=== PATIENT | female | born 2000 | race Caucasian/White ===

== ENCOUNTER → 2021-11-19 | Outpatient (CLI) | payer BC, SELFPAY ==
--- NOTE | 2021-11-19 12:22 | EKG12_ITS ---
Test Reason : MEDICATION Blood Pressure : / mmHG Vent. Rate : 072 BPM Atrial Rate : 072 BPM P-R Int : 112 ms QRS Dur : 076 ms QT Int : 400 ms P-R-T Axes : 016 073 003 degrees QTc Int : 438 ms Normal sinus rhythm Normal ECG Confirmed by WERO SANTOS, ALFREDO ([id number]), slot editor FEI ROBLES ([id number]) on 11/20/2021 8:30:47 AM Referred By: Tana Oliver Confirmed By:ALFREDO CONTEH MD
== END | disposition home or self-care (01) ==
LOC: PSN 12:20
PROVIDERS: Referring Provider Physician Assistant; Visit Provider Physician Assistant
DX: Z79.899 Other long term (current) drug therapy (principal)
CPT/HCPCS: 93005

== ENCOUNTER 2022-03-31 16:43 | Emergency (ER) | payer BC, SELFPAY ==
[2022-03-31 16:44] VITALS: BP 124/76; PULSE 105; RESP 16; TEMP 36.4; O2SAT 98; BMI 31.6
[2022-03-31 17:15] LABS: Absolute Lymphocyte Count 2.57 X10^3/uL (0.83-4.51); Absolute Neutrophil Count 7.7 X10^3/uL (2.0-7.7); Basophil# 0.04 X10^3/uL; Basophil% 0.4 % (0-1); Eosinophil# 0.11 X10^3/uL; Hematocrit 41.6 % (37-47); Hemoglobin 13.9 g/dL (12.0-15.0); Lymphocyte # 2.57 X10^3/ul (0.83-4.51); Lymphocyte % 23.3 % (19-41); Mean Corp Hgb Conc 33.4 g/dL (32-36); Mean Corpuscular Hgb 27.8 pg (27.0-32.0); Mean Corpuscular Volume 83.2 fL (81-99); Mean Platelet Vol. 10.4 fl (6.2-12.0); Monocyte# 0.59 X10^3/uL; Monocyte% 5.3 % (0-10); NRBC Flagged by Analyzer 0 % (0-5); Neutrophil # 7.69 X10^3/uL (2.7-7.7); Neutrophil % 69.6 % (47-70); Platelet Count 322 K/mm3 (150-450); RBC Distribution Width CV 12.7 % (11.6-14.6); RBC Distribution Width SD 38.3 fl (35.1-43.9)
[2022-03-31 17:31] LABS: Anion Gap 8 (5-15); BUN 11 mg/dL (7-18); BUN/Creat Ratio 12.9 RATIO (10-20); Calcium,Total 10.1 mg/dL (8.5-10.1); Chloride 107 mmol/L (98-107); Creatinine, Serum 0.85 mg/dL (0.55-1.02); EST Glomerular Filtration Rate 88 mL/min (>60); Est Glom Filt Rate - Afr Amer 106 mL/min (>60); Estimated Creatinine Clearance 93.42 ml/min; Glucose 85 mg/dL (74-106); Potassium 3.6 mmol/L (3.5-5.1); Sodium Level 138 mmol/L (136-145)
[2022-03-31 17:34] LABS: Internal QC Validated? YES +Cl - CLEAR BKGD; Pregnancy, Serum, hCG Quali. NEGATIVE Negative
[2022-03-31 18:08] LABS: Bacteria 0 SEEN /hpf (None Seen); Mucous, Urine 0 SEEN /hpf (<or=2+); Red Blood Cells-Urine 0 SEEN /hpf (0-5); Squamous Epithelial Cells - UA 0 SEEN /hpf (5-10); White Blood Cells 0 SEEN /hpf (0-5)
--- NOTE | 2022-03-31 18:22 | US_ITS ---
INDICATION: pelvic pain EXAMINATION: Ultrasound US Transvaginal Non-OB TECHNIQUE: Transvaginal (for optimal evaluation of the adnexa) pelvic ultrasound was performed. Grayscale, spectral waveform, and color flow Doppler evaluation of the adnexa. COMPARISON: None. FINDINGS: UTERUS: Anteverted. The uterus measures 6.2 x 3.4 x 2.8 cm. There is no uterine mass. The endometrial stripe measures 6 mm in AP diameter which is within normal limits. RIGHT OVARY: 6.2 x 3.4 x 2.8 cm. Anechoic cyst measures 3.9 x 2.4 x 2.1 cm. There is normal arterial inflow and venous outflow present in the right ovary. LEFT OVARY: 2.7 x 2.3 x 1.5 cm. Non-enlarged, normal echogenicity. There is normal arterial inflow and venous outflow present in the left ovary. FREE FLUID: Moderate in the cul-de-sac. US/Transvaginal Non- IMPRESSION: 3.9 cm right ovarian cyst. Moderate free fluid in the cul-de-sac may reflect a rupturing cyst but is otherwise nonspecific. Electronically Signed: Steve Rutherford MD at 19:32 EST ,
--- NOTE | 2022-03-31 18:28 | EX.ED.DYSGE1 ---
HPI History of Present Illness Chief Complaint: Abd Pain Informant: patient Narrative Narrative: Patient is a 21-year-old female with history of ADD and anxiety and currently being evaluated for endometriosis. She is presenting with pelvic abdominal pain. Patient states she got home from taking her finals today. She went to lay down and had sudden severe pain in her lower abdomen. She describes as a pressure and a stretching sensation. The right side is worse than the left. The pain was severe she had nausea but no vomiting. The nausea is currently improved. States the pain is worse if she touches the area or takes a deep breath. She has had a lot of stress in her life as her father is currently in hospice due to a brain tumor. Her last menstrual period was 03/12. She follows with Dr. Arizmendi at [facility] and is getting evaluated for potential laparoscopic exploratory surgery for the endometriosis. She does have a history of ovarian cyst with rupture back in 2018 but she states this feels different. Patient is currently on oral contraceptives. No other complaints at this time. Did not take anything for pain prior to arrival. PFSH PFSH Home Medications lisdexamfetamine 40 mg capsule (Vyvanse) 40 mg PO DAILY 03/31/22 [History Last Taken Unknown] Allergy/AdvReac Type Severity Reaction Status Date / Time No Known Allergies Allergy Verified 03/31/22 16:46 Social History Smoking Status: Never smoker ROS ROS ED Constitutional Constitutional ED: Denies chills or fever(s) Eyes Eyes: Denies change in vision ENT ENT ED: Denies sore throat Cardiovascular Cardiovascular: Denies chest pain Respiratory/Chest Respiratory/Chest: Denies cough Gastrointestinal Gastrointestinal: Reports abdominal pain and nausea; Denies constipation, diarrhea or vomiting Genitourinary Genitourinary ED: Reports LMP (females 10-50) Details: Comment: (03/12); Denies dysuria, hematuria or urinary frequency Musculoskeletal Musculoskeletal: Denies arthralgias or back pain Integumentary Denies rash Neurologic Neurologic: Denies headache(s) or weakness Psychiatric Psychiatric: Denies anxiety EXAM Physical Exam Const Vital Signs: 03/31/22 16:44 03/31/22 20:49 Temperature 97.6 F L Temperature Source Temporal Pulse Rate 105 H 79 Respiratory Rate 16 14 Blood Pressure 124/76 H Blood Pressure Mean 92 Pulse Ox 98 97 Oxygen Delivery Method Room Air Positive well nourished and well developed General Appearance ED: well developed and NAD HEENT Reports moist mucous membranes Eyes PERRL and EOMs intact bilaterally Neck supple Chest Wall inspection of chest normal and palpation of chest normal Resp normal respiratory effort and clear to auscultation bilaterally Cardio regular rate, regular rhythm and no murmurs GI normal to inspection, nondistended, normoactive bowel sounds GI Narrative: Negative heel strike, no rebound tenderness. negative psoas sign and Rovsing sign. No pain at McBurney's point. Palpation: soft and tender RLQ (More in the pelvic region); Negative for guarding Back/Spine no CVA tenderness Extremity normal to inspection Neuro oriented x3 Sensorium / Orientation: alert Motor Exam: Negative for general weakness Psych mental status grossly normal Skin no rashes or lesions noted MDM MDM MDM Narrative Medical decision making narrative: Patient is evaluated for lower abdominal pain. Has a history of ovarian cysts and is getting evaluated for endometriosis. Patient has some mild suprapubic/pelvic tenderness on abdominal exam. Overall she is well-appearing. Upon arrival patient's blood pressure is normal however she is mildly tachycardic with a pulse of 105. CBC and BMP normal. Serum is negative. Urinalysis shows a mild dehydration with ketones of 15 but otherwise normal. Patient is given dose of IV Toradol as well as a liter of IV fluid. Her pain is lower than I would expect for appendicitis and I suspect a gynecologic cause of her pain. Differential does include ovarian torsion and pelvic ultrasound was obtained. Patient does have some free fluid which is nonspecific on the pelvic exam. There is a large ovarian cyst but no signs of torsion. Is possible that patient has a cyst that is rupturing and this is causing her ultrasound findings. Her pain is improved on physical exam. She is now just sore. Lower suspicion for intermittent torsion as she only had 1 episode of severe pain. Patient is encouraged to follow-up with her primary care doctor. She is counseled on the signs and symptoms of ovarian torsion/intermittent torsion and given return precautions to the ER. She verbalizes good understanding of this plan. Instructed to alternate 600 mg ibuprofen every 6 hours as needed for pain. Lab Data Attestation: I reviewed the patient's lab results. Labs: Laboratory Results - last 24 hr 03/31/22 03/31/2203/31/22 17:05 17:05 17:05 WBC 11.0 RBC 5.00 Hgb 13.9 Hct 41.6 MCV 83.2 MCH 27.8 MCHC 33.4 RDW Std Deviation 38.3 RDW Coeff of Dayna 12.7 Plt Count 322 MPV 10.4 Immature Gran % (Auto) 0.400 Neut % (Auto) 69.6 Lymph % (Auto) 23.3 [place] % (Auto) 5.3 Eos % (Auto) 1.0 Baso % (Auto) 0.4 Absolute Neuts (auto) 7.7 Absolute Lymphs (auto) 2.57 Nucleated RBC % 0 Sodium 138 Potassium 3.6 Chloride 107 Carbon Dioxide 23.0 Anion Gap 8 BUN 11 Creatinine 0.85 Estim Creat Clear Calc 93.42 Est GFR (MDRD) Af Amer 106 Est GFR (MDRD) Non-Af 88 BUN/Creatinine Ratio 12.9 Glucose 85 Calcium 10.1 Serum , Qual NEGATIVE Urine Color Urine Clarity Urine pH Ur Specific [place] Urine Protein Urine Glucose (UA) Urine Ketones Urine Occult Blood Urine Nitrite Urine Bilirubin Urine Urobilinogen Ur Leukocyte Esterase Urine RBC Urine WBC Ur Squamous Epith Cells Urine Bacteria Urine Mucus 03/31/22 18:01 WBC RBC Hgb Hct MCV MCH MCHC RDW Std Deviation RDW Coeff of Dayna Plt Count MPV Immature Gran % (Auto) Neut % (Auto) Lymph % (Auto) [place] % (Auto) Eos % (Auto) Baso % (Auto) Absolute Neuts (auto) Absolute Lymphs (auto) Nucleated RBC % Sodium Potassium Chloride Carbon Dioxide Anion Gap BUN Creatinine Estim Creat Clear Calc Est GFR (MDRD) Af Amer Est GFR (MDRD) Non-Af BUN/Creatinine Ratio Glucose Calcium Serum , Qual Urine Color Yellow Urine Clarity Clear Urine pH 8.0 Ur Specific [place] 1.010 Urine Protein Negative Urine Glucose (UA) Normal Urine Ketones 15 H Urine Occult Blood Negative Urine Nitrite Negative Urine Bilirubin Negative Urine Urobilinogen Normal Ur Leukocyte Esterase Negative Urine RBC 0 SEEN Urine WBC 0 SEEN Ur Squamous Epith Cells 0 SEEN Urine Bacteria 0 SEEN Urine Mucus 0 SEEN Radiography Diagnostic Testing: Clinical Impression(s) from Imaging Studies Transvaginal US 03/31/22 18:22 IMPRESSION: 3.9 cm right ovarian cyst. Moderate free fluid in the cul-de-sac may reflect a rupturing cyst but is otherwise nonspecific. Electronically Signed: Steve Rutherford MD at 19:32 EST Reading Location ID and State: [facility] / [place] Tel , Service support , Discharge Plan Triage Chief Complaint: Abd Pain ED Provider: Desiree Shah Dx/Rx/DC Orders Clinical Impression: Pelvic pain, Rupture of cyst of right ovary Instructions: ED Ovarian Cyst Prescriptions: No Action Vyvanse 40 mg capsule 40 mg PO DAILY Label Comments: TAKE 1 CAPSULE BY MOUTH EVERY DAY IN THE MORNING Primary Care Provider: Phyllis Pichardo Referrals: Phyllis Pichardo [Primary Care Provider] - Activity Restrictions/Additional Instructions: Follow-up with your PHARMACY PICKING TECHNICIAN. Call them tomorrow. Let them know that you had an ultrasound which showed a ovarian cyst on the right side as well as free fluid. We suspect it was a ruptured cyst but recommend close outpatient follow-up. If your pain returns/becomes more severe please return to the emergency room presents possibly to be having intermittent ovarian torsion. Take [id number]-[id number] ibuprofen (600 mg every 6 hours as needed for pain) Disposition Disposition: Home, Self Care
[2022-03-31 18:33] LABS: Color, Urine Yellow (Yellow); Glucose, Dipstick Normal (Normal); Ketone-Dipstick 15 mg/dl (Negative); Leukocyte Esterase-Dipstick Negative /ul (Negative); Nitrite-Dipstick Negative (Negative); Occult Blood-Urine Negative /ul (Negative); Protein-Dipstick Negative (Negative); Urine Bilirubin Dipstick Negative (Negative); Urine Clarity Clear (Clear); Urine Urobilinogen Normal (Normal)
[2022-03-31] MEDS: Ketorolac 15 MG/ML Vial IV (18:33)
[2022-03-31 20:49] VITALS: PULSE 79; RESP 14; O2SAT 97
== END 2022-03-31 20:49 | disposition home or self-care (01) ==
PROVIDERS: Emergency Provider Emergency Medicine; PCP Family Medicine; Visit Provider Emergency Medicine
DX: R10.2 Pelvic and perineal pain (principal); N83.201 Unspecified ovarian cyst, right side; F41.9 Anxiety disorder, unspecified; Z79.899 Other long term (current) drug therapy
CPT/HCPCS: 76830; 80048; 81001; 84703; 85025; 93976; 96374; 99283; J7030; A4216

== ENCOUNTER → 2022-06-20 | Outpatient (CLI) | payer BC, SELFPAY ==
[2022-06-20 13:13] LABS: Erythrocyte Sedimentation Rate 11 mm/hr (0-30)
[2022-06-20 13:16] LABS: Absolute Lymphocyte Count 2.67 X10^3/uL (0.83-4.51); Absolute Neutrophil Count 4.5 X10^3/uL (2.0-7.7); Basophil# 0.04 X10^3/uL; Basophil% 0.5 % (0-1); Eosinophil# 0.14 X10^3/uL; Eosinophils% 1.8 % (0-5); Lymphocyte # 2.67 X10^3/ul (0.83-4.51); Lymphocyte % 34.1 % (19-41); Mean Corp Hgb Conc 33.3 g/dL (32-36); Mean Corpuscular Hgb 27.6 pg (27.0-32.0); Mean Corpuscular Volume 82.7 fL (81-99); Mean Platelet Vol. 10.8 fl (6.2-12.0); Monocyte# 0.47 X10^3/uL; NRBC Flagged by Analyzer 0 % (0-5); Neutrophil % 57.3 % (47-70); Platelet Count 345 K/mm3 (150-450); RBC Distribution Width CV 11.9 % (11.6-14.6); RBC Distribution Width SD 35.8 fl (35.1-43.9); Red Blood Count 5.08 M/mm3 (4.2-5.4); White Blood Count 7.8 K/mm3 (4.4-11.0)
[2022-06-20 13:50] LABS: ALB/GLOB Ratio 1.2 RATIO (0.9-2.4); AST(SGOT) 13 U/L (15-37); Alanine Aminotransfer ALT/SGPT 21 U/L (13-56); Albumin, Serum 4.2 g/dL (3.2-5.0); Alkaline Phosphatase 71 U/L (45-117); Anion Gap 9 (5-15); BUN 10 mg/dL (7-18); CRP < 2.90 mg/L (0.0-3.0); Calcium,Total 9.7 mg/dL (8.5-10.1); Chloride 106 mmol/L (98-107); Creatinine, Serum 0.77 mg/dL (0.55-1.02); EST Glomerular Filtration Rate 99 mL/min (>60); Est Glom Filt Rate - Afr Amer 120 mL/min (>60); Globulin 3.6 g/dL (2.2-4.2); Glucose 91 mg/dL (74-106); LDH 158 U/L (84-246); Potassium 3.6 mmol/L (3.5-5.1); Protein, Total 7.8 g/dL (6.4-8.2); Sodium Level 136 mmol/L (136-145)
[2022-06-22 16:09] LABS: Anti-Centromere B Ab <0.2 AI (0.0-0.9); Anti-Chromatin <0.2 AI (0.0-0.9); Anti-Jo <0.2 AI (0.0-0.9); Anti-Scleroderma-70 AB 4.9 AI (0.0-0.9); RNP Ab 0.3 AI (0.0-0.9); SJOGREN'S Anti-SS-A test < 0.2 AI (0.0-0.9); SJOGREN'S Anti-SS-B test 4.4 AI (0.0-0.9); Smith Ab <0.2 AI (0.0-0.9)
[2022-06-22 20:34] LABS: Anti-dsDNA Ab 1 IU/mL (0-9)
[2022-06-23 08:10] LABS: Endomysial Antibody IgA Negative (Negative); Immunoglobulin A 66 mg/dL (87-352)
[2022-06-23 17:21] LABS: t-Transglutaminase IgA <2 U/mL (0-3)
[2022-06-25 12:09] LABS: Albumin 4.2 g/dL (2.9-4.4); Alpha-1-Globulins 0.2 g/dL (0.0-0.4); Alpha-2-Globulins 0.8 g/dL (0.4-1.0); Cytoplasmic Ab (C-ANCA) <1:20 titer (Neg:<1:20); Gamma Globulin 0.9 g/dL (0.4-1.8); Immunoglobulin A 73 mg/dL (87-352); Immunoglobulin E 16 IU/mL (6-495); Immunoglobulin G 977 mg/dL (586-1602); Immunoglobulin M 132 mg/dL (26-217); PROEL- TOTAL PROTEIN 7.1 g/dL (6.0-8.5)
[2022-06-25 12:34] LABS: Perinuclear Ab (P-ANCA) <1:20 titer (Neg:<1:20)
== END | disposition home or self-care (01) ==
LOC: LAB 12:19
PROVIDERS: PCP Family Medicine; Referring Provider Nurse Practitioner Adult Health; Visit Provider Nurse Practitioner Adult Health
DX: R10.9 Unspecified abdominal pain (principal); R19.8 Other specified symptoms and signs involving the digestive system and abdomen
CPT/HCPCS: 36415; 80053; 82784; 82785; 83516; 83615; 84165; 85025; 85652; 86140; 86225; 86235; 86255; 86256; 86334

== ENCOUNTER → 2022-06-21 | Outpatient (CLI) | payer BC, SELFPAY ==
[2022-06-25 12:32] LABS: Calprotectin, Stool <16 ug/g (0-120)
== END | disposition home or self-care (01) ==
LOC: LAB 12:31 → LABSPEC 12:33
PROVIDERS: PCP Family Medicine; Visit Provider Nurse Practitioner Adult Health
DX: R10.9 Unspecified abdominal pain (principal); R19.8 Other specified symptoms and signs involving the digestive system and abdomen
CPT/HCPCS: 83630; 83993

== ENCOUNTER 2022-08-23 12:53 | Day surgery (SDC) | payer BC, SELFPAY ==
[2022-08-23 13:35] VITALS: BP 126/63; PULSE 92; RESP 16; TEMP 36.6; O2SAT 96; BMI 30.6
[2022-08-23] MEDS: Lactated Ringers 1,000 ML 15 ML IV (13:45)
[2022-08-23 13:54] LABS: Internal QC Validated? YES +Cl - CLEAR BKGD; Pregnancy, Urine Negative Negative
--- NOTE | 2022-08-23 14:15 | IMM_PTH ---
PATIENT: RANDELL ALSTON LOC: EN U#:[id number] AGE/SX: 22/ ROOM: RE08/23/[address]: Dr. Attila Bates DO : 2000 BED: DIS: 08/23/2022 SPEC #: [id number] RECD: 08/24/22 13:09 STATUS: MEGAN REQ #: [id number] ELISABETH: 08/23/22 14:[address]: Attila Bates DEPT: IMMUNOHISTOCHEMISTRY RECD BY: Roberta Lazar ENTERED: 08/24/22 13:10 SP TYPE: IMMUNO OTHR DR: CORDELIA PACHECO DO Tissues: B - Stomach, NOS Procedures: H Pylori (initial) PHYSICIAN & INSTITUTION [place] [id number] SPECIMEN INFORMATION: Tissue Source: B ? Gastric body Clinical Info: Constipation/diarrhea, abdominal pain Specimen Number: [id number] CPT code: 08212 METHODOLOGY: Deparaffinized sections of prefer/formalin-fixed tissue or PAP/DQ stained slides are incubated with monoclonal/polyclonal antibodies/oligonucleotide probes. Localization is made via biotin free immunoperoxidase method. Appropriate controls are performed and reacted as expected. Results on target cell population are indicated in the following table: RESULTS: ANTIBODY / CLONE RESULT Block B H Pylori (polyclonal) negative These tests were developed and their performance characteristics determined by [facility]. They may not have been cleared or approved by the U.S. Food and Drug Administration. The FDA has determined that such clearance or approval is not necessary. The above immunohistochemical/dualISH markers are ordered and reviewed by the Pathologist. INTERPRETATION: B. Gastric body, biopsy: Negative for Helicobacter pylori organisms. SJ:joce 08/25/2022
--- NOTE | 2022-08-23 14:15 | COLBX_PTH ---
PATIENT: RANDELL ALSTON LOC: EN U#:[id number] AGE/SX: 22/ ROOM: RE08/23/[address]: Dr. Attila Bates DO : 2000 BED: DIS: 08/23/2022 SPEC #: [id number] RECD: 08/23/22 16:09 STATUS: MEGAN ESVIN #: [id number] ELISABETH: 08/23/22 14:[address]: Attila Bates DEPT: SURGICAL PATHOLOGY RECD BY: Maddy Haas ENTERED: 08/24/22 10:14 SP TYPE: COLON BX OTHR DR: CORDELIA PACHECO DO Tissues: A - Duodenum, NOS B - Gastric mucous membrane C - Esophagus, NOS D - Ileum, NOS E - COLON BIOPSY Procedures: Special Stain Group II Surgery Specimen Level IV Alcian Blue/PAS (control) HEADER OPERATION: Colonoscopy with biopsies, EGD with biopsies PRE-OP DIAGNOSIS: Alternating constipation and diarrhea, abdominal pain TISSUE SUBMITTED: A ? Duodenum biopsy, B ? Gastric body biopsy, C ? Distal esophagus biopsy, D ? Terminal ileum biopsy, E ? Random colon biopsy MICROSCOPIC DIAGNOSIS A. Duodenum, biopsy: Fragments of duodenal mucosa, no pathologic diagnosis. B. Gastric body, biopsy: Mild gastritis. See microscopic description and comment. C. Distal esophagus, biopsy: A fragment of gastroesophageal mucosa with chronic inflammation. Intestinal metaplasia (goblet cell metaplasia) not identified. See comment. D. Terminal ileum, biopsy: Fragments of small intestinal mucosa, no pathologic diagnosis. E. Colon, random biopsy: Fragments of colonic mucosa with pigment laden macrophages consistent with melanosis coli. SJ:joce 08/25/2022 COMMENT B. The results of immunohistochemistry for Helicobacter pylori will be reported separately ([id number]). C. Alcian blue/PAS stain with matched control is used in the evaluation of the specimen. MICROSCOPIC DESCRIPTION Slides are reviewed. B. The specimen shows fragments of gastric mucosa with chronic inflammatory cell infiltrates in the lamina propria consisting of lymphocytes and plasma cells, consistent with mild chronic gastritis. GROSS DESCRIPTION A - Received in fixative is one container labeled with the patient's name and designated duodenum biopsy. The specimen consists of multiple irregular fragments of light lancaster soft tissue that in aggregate measure 1.0 x 0.5 x 0.1 cm. The specimen is totally submitted in one cassette. B - Received in fixative is one container labeled with the patient's name and designated gastric body biopsy. The specimen consists of two irregular fragments of light [place] soft tissue that in aggregate measure 0.6 x 0.3 x 0.1 cm. The specimen is totally submitted in one cassette. C - Received in fixative is one container labeled with the patient's name and designated distal esophagus biopsy. The specimen consists of one irregular fragment of light [place] soft tissue that measures 0.3 x 0.3 x 0.1 cm. The specimen is totally submitted in one cassette. D - Received in fixative is one container labeled with the patient's name and designated terminal ileum. The specimen consists of multiple irregular fragments of light [place] soft tissue that in aggregate measure 1.0 x 0.3 x 0.1 cm. The specimen is totally submitted in one cassette. E - Received in fixative is one container labeled with the patient's name and designated random colon biopsy. The specimen consists of multiple irregular fragments of light lanc[place] soft tissue that in aggregate measure 1.8 x 0.4 x 0.1 cm. The specimen is totally submitted in one cassette. / SJ:joce 08/24/2022 TC:3 CPT: 14985 x5, 60825
--- NOTE | 2022-08-23 14:24 | PCM.HP.BLA ---
History and Physical Date of Admission: 08/23/22 ?21 F who presents to the office today to establish with GI for abdominal pain, alternating constipation and diarrhea. Reports long hx of constipation, started around age 8, missed school because of having abd pain related to constipation. Recalls having the episodes of frequent soft stools then too, they were attributed to stress. Can have constipation, or stools that are soft or loose, never watery. Worst days she will have 4 BMs in 2 hrs. Worse when stressed. Tired after frequent BMs. But pain is mostly resolved after the BMs. Lots of cramps precede the BMs. Bowels vary with period, constipated before and then soft with menses. Occas straining with BM. If constipated then only has BM 1-2x per week. Then very large BM. Has some relief of pain after the large BMs. Hasn't taken anything regularly for the bowels. Recently took docusate and senna because she had laparoscopy to eval for endometriosis (chronic right pelvic pain)--was temporarily on percocet. No relief with docusate, needed senna to have BM then. Pains can be worse with eating, especially processed white starches eg poptarts--causes cramping in upper abd, queasy feeling, gas. Gets bloating. Can have random diarrhea with yellow mucus, has seen bright red blood from hemorrhoids or tear, no melena. Tried metamucil but had increased cramps; no relief with fiber gummies; slight improvement with Align but expensive. Keeps well hydrated. No vomiting. Heartburn started when she began OCP a couple of yrs ago, not currently having heartburn, just changed to a progestin only OCP because of the fatty liver just found, or to see if it would help with GI symptoms. Had to quit a new job last year due to GI issues. Better w/ Lactaid milk. Wonders about food allergies. No hx of endoscopies. Can have hip pains, no rash. 04/2022 CT abd pel w/ IV contrast: small amt fat in liver, left adnexal hypodensity possible ovarian cyst, moderate colonic stool burden 02/2022 labs: CMP unremarkable, CBC unremarkable, TSH 1.827, vit D 20 (hasn't been taking supplement), folate normal, ferr 22, iron 79, vit B12 normal 04/2021 US abd complete: unremarkable [employer], doing classes online. Not currently working due to GI issues. ROS Const Constitutional: No fatigue ENT ENT: Positive for difficulty swallowing Gastro GI: Positive for abdominal pain, bloating, constipation, diarrhea, difficulty swallowing and excessive flatus; No belching, change in bowel habits, change in stool character, coffee ground emesis, cramping, heartburn, feeling full early, incontinent of stools, Vomiting blood/hematemesis, Blood in stool, loose stools, Black,tarry stools, nausea/dyspepsia, pain with swallowing, vomiting or other Musc Musculoskeletal: Positive for joint pain, back pain, muscle cramps, muscle weakness and stiffness Skin Skin: No yellowing of the eye or itchy eyes Psych Psychiatric: Positive for anxiety, No depression and Positive for inattentiveness Endo Endocrine: No fatigue Aller/Imm Allergy/Immunologic: No itchy eyes Michael/Lymp Hematologic/Lymphatic: No easy bleeding or easy bruising Exam Const General: cooperative and anxious Nutritional Appearance: overweight Orientation: alert, awake and oriented x3 HENMT Head: normal to inspection Eyes Sclera: sclerae normal Resp Effort & Inspection: normal respiratory effort GI Inspection: normal to inspection Palpation: soft, no hepatosplenomegaly, no masses and tender (generalized) General: bladder normal to palpation Bimanual Exam- Vagina & Uterus: bladder normal to palpation Skin General: no rashes or lesions noted Neuro Speech: speech normal Gait: normal gait Quality Reporting Tobacco Screening ([facility] 138) Smoking Status: Never smoker Assessment and Plan Assessment and Plan (1) Abdominal pain: ?Status:?Chronic ?Plan: 21 yr old female with chronic abdominal pains, constipation alternating with diarrhea DDx includes IBS, IBD, celiac Try miralax or FiberChoice tablets to treat underlying constipation Plans to see a medical intern EGD and colonoscopy with office f/u 2 wks later Labs now to eval inflammation, IBD, celiac, autoimmune/rheum (2) Alternating constipation and diarrhea: ?Status:?Chronic ?Plan: see above ? ? ? Orders: Orders Comprehensive Metabolic Profil Today R10.9 - Unspecified abdominal pain, R19.8 - Other specified symptoms and signs involving the digestive system and abdomen ? CRP Today R10.9 - Unspecified abdominal pain, R19.8 - Other specified symptoms and signs involving the digestive system and abdomen ? LDH Today R10.9 - Unspecified abdominal pain, R19.8 - Other specified symptoms and signs involving the digestive system and abdomen ? CBC W/Diff, Automated Today R10.9 - Unspecified abdominal pain, R19.8 - Other specified symptoms and signs involving the digestive system and abdomen ? Erythrocyte Sed Rate Today R10.9 - Unspecified abdominal pain, R19.8 - Other specified symptoms and signs involving the digestive system and abdomen ? MICKEY Comprehensive Panel Today R10.9 - Unspecified abdominal pain, R19.8 - Other specified symptoms and signs involving the digestive system and abdomen ? Calprotectin, Stool Today R10.9 - Unspecified abdominal pain, R19.8 - Other specified symptoms and signs involving the digestive system and abdomen ? Stool Lactoferrin/WBC Today R10.9 - Unspecified abdominal pain, R19.8 - Other specified symptoms and signs involving the digestive system and abdomen ? ANCA Today R10.9 - Unspecified abdominal pain, R19.8 - Other specified symptoms and signs involving the digestive system and abdomen ? Celiac Disease Profile Today R10.9 - Unspecified abdominal pain, R19.8 - Other specified symptoms and signs involving the digestive system and abdomen ? Immunoglobulins G/A/M/E Today R10.9 - Unspecified abdominal pain, R19.8 - Other specified symptoms and signs involving the digestive system and abdomen ? VESTA + Protein Elect, Serum Today R10.9 - Unspecified abdominal pain, R19.8 - Other specified symptoms and signs involving the digestive system and abdomen ? Miscellaneous Lab Procedure Today R10.9 - Unspecified abdominal pain, R19.8 - Other specified symptoms and signs involving the digestive system and abdomen ? I have examined the patient and the H&P has been reviewed. There are no clinical changes since date of exam.
[2022-08-23 15:10] VITALS: BP 111/62; BP 111/72; BP 126/63; PULSE 90; PULSE 97; RESP 16; TEMP 36.6; O2SAT 100
[2022-08-23 15:15] VITALS: BP 116/80; BP 126/63; PULSE 87; RESP 16; O2SAT 100
--- NOTE | 2022-08-23 15:16 | OP.EGD_ITS ---
Patient Name: Toshia Cain Procedure Date: 08/23/2022 2:24 PM Date of : 2000 Age: 22 Procedure: Upper GI endoscopy Indications: Epigastric abdominal pain Providers: Attila Bates DO Referring MD: Attila Bates DO Medicines: Monitored Anesthesia Care Patient Profile: This is a 22 year old female. Refer to note in patient chart for documentation of history and physical. Patient has symptoms of chronic abdominal cramping and chronic epigastric abdominal pain. Complications: No immediate complications. Procedure: Pre-Anesthesia Assessment: - Prior to the procedure, a History and Physical was performed, and patient medications and allergies were reviewed. The risks and benefits of the procedure and the sedation options and risks were discussed with the patient. All questions were answered and informed consent was obtained. Patient identification and proposed procedure were verified by the physician in the pre-procedure area. Mental Status Examination: normal. Airway Examination: normal oropharyngeal airway and neck mobility. Respiratory Examination: clear to auscultation. CV Examination: normal. Prophylactic Antibiotics: The patient does not require prophylactic antibiotics. Prior Anticoagulants: The patient has taken no previous anticoagulant or antiplatelet agents. ASA Grade Assessment: II - A patient with mild systemic disease. After reviewing the risks and benefits, the patient was deemed in satisfactory condition to undergo the procedure. The anesthesia plan was to use monitored anesthesia care (MAC). Immediately prior to administration of medications, the patient was re-assessed for adequacy to receive sedatives. The heart rate, respiratory rate, oxygen saturations, blood pressure, adequacy of pulmonary ventilation, and response to care were monitored throughout the procedure. The physical status of the patient was re-assessed after the procedure. After obtaining informed consent, the endoscope was passed under direct vision. Throughout the procedure, the patient's blood pressure, pulse, and oxygen saturations were monitored continuously. The colonoscope was introduced through the mouth, and advanced to the second part of duodenum. The upper GI endoscopy was accomplished without difficulty. The patient tolerated the procedure well. Scope In: 2:36:56 PM Scope Out: 2:42:39 PM Total Procedure Duration Time 0 hours 5 minutes 43 seconds Findings: LA Grade A (one or more mucosal breaks less than 5 mm, not extending between tops of 2 mucosal folds) esophagitis with no bleeding was found 36 to 38 cm from the incisors. Biopsies were taken with a cold forceps for histology. Verification of patient identification for the specimen was done. Estimated blood loss was minimal. Patchy mildly erythematous mucosa without bleeding was found in the gastric body. Biopsies were taken with a cold forceps for histology. Verification of patient identification for the specimen was done. Estimated blood loss was minimal. Patchy mildly erythematous mucosa was found in the duodenal bulb, in the first portion of the duodenum and in the second portion of the duodenum. Biopsies were taken with a cold forceps for histology. Verification of patient identification for the specimen was done. Estimated blood loss was minimal. Impression: - LA Grade A reflux esophagitis. Biopsied. - Erythematous mucosa in the gastric body. Biopsied. - Erythematous duodenopathy. Biopsied. Recommendation: - Discharge patient to home. - Resume previous diet. - Continue present medications. Procedure Code(s): --- Professional --- 52692, Esophagogastroduodenoscopy, flexible, transoral; with biopsy, single or multiple CPT copyright 2017 [employer]. All rights reserved. The codes documented in this report are preliminary and upon certified medical records coder review may be revised to meet current compliance requirements. Attila Bates DO 08/23/2022 3:16:16 PM This report has been signed electronically. Number of Addenda: 0 Note Initiated On: 08/23/2022 2:24 PM
--- NOTE | 2022-08-23 15:16 | OP.CCLET_ITS ---
08/23/2022 Phyllis Pichardo Do Re : Upper GI endoscopy procedure for Toshia Cain Dear Kylee This procedure was performed on Tuesday, August 23, 2022. My impressions and recommendations are as follows: Impressions : - LA Grade A reflux esophagitis. Biopsied. - Erythematous mucosa in the gastric body. Biopsied. - Erythematous duodenopathy. Biopsied. Recommendations : - Discharge patient to home. - Resume previous diet. - Continue present medications. My findings are described in the full procedure note, which is enclosed. If I can be of further assistance, please feel free to contact me at . Sincerely, Attila Bates, 08/23/2022 3:16:16 PM This report has been signed electronically.
--- NOTE | 2022-08-23 15:19 | OP.COLON_ITS ---
Patient Name: Toshia Cain Procedure Date: 08/23/2022 2:42 PM Date of : 2000 Age: 22 Procedure: Colonoscopy Indications: Screening for colorectal malignant neoplasm Providers: Attila Bates DO Referring MD: Attila Bates DO Medicines: Monitored Anesthesia Care Patient Profile: This is a 22 year old female. Refer to note in patient chart for documentation of history and physical. Patient has symptoms of chronic abdominal cramping and chronic epigastric abdominal pain. Last Colonoscopy: none. The patient's first colonoscopy is today. Complications: No immediate complications. Procedure: Pre-Anesthesia Assessment: - Prior to the procedure, a History and Physical was performed, and patient medications and allergies were reviewed. The risks and benefits of the procedure and the sedation options and risks were discussed with the patient. All questions were answered and informed consent was obtained. Patient identification and proposed procedure were verified by the physician in the pre-procedure area. Mental Status Examination: normal. Airway Examination: normal oropharyngeal airway and neck mobility. Respiratory Examination: clear to auscultation. CV Examination: normal. Prophylactic Antibiotics: The patient does not require prophylactic antibiotics. Prior Anticoagulants: The patient has taken no previous anticoagulant or antiplatelet agents. ASA Grade Assessment: II - A patient with mild systemic disease. After reviewing the risks and benefits, the patient was deemed in satisfactory condition to undergo the procedure. The anesthesia plan was to use monitored anesthesia care (MAC). Immediately prior to administration of medications, the patient was re-assessed for adequacy to receive sedatives. The heart rate, respiratory rate, oxygen saturations, blood pressure, adequacy of pulmonary ventilation, and response to care were monitored throughout the procedure. The physical status of the patient was re-assessed after the procedure. After I obtained informed consent, the scope was passed under direct vision. Throughout the procedure, the patient's blood pressure, pulse, and oxygen saturations were monitored continuously. The colonoscope was introduced through the anus and advanced to the terminal ileum. The colonoscopy was performed without difficulty. The patient tolerated the procedure well. The quality of the bowel preparation was adequate. Scope In: 2:45:30 PM Scope Withdrawal Time 0 hours 8 minutes 16 seconds Scope Out: 3:03:24 PM Total Procedure Duration Time 0 hours 17 minutes 54 seconds Findings: The perianal and digital rectal examinations were normal. An area of mildly congested mucosa was found in the sigmoid colon, in the descending colon and at the hepatic flexure. Biopsies were taken with a cold forceps for histology. Verification of patient identification for the specimen was done. Estimated blood loss was minimal. The terminal ileum appeared normal. Biopsies were taken with a cold forceps for histology. Verification of patient identification for the specimen was done. Estimated blood loss was minimal. Impression: - Congested mucosa in the sigmoid colon, in the descending colon and at the hepatic flexure. Biopsied. - The examined portion of the ileum was normal. Biopsied. Recommendation: - Discharge patient to home. - Resume previous diet. - Continue present medications. - Await pathology results. - Repeat colonoscopy is recommended. The colonoscopy date will be determined after pathology results from today's exam become available for review. Procedure Code(s): --- Professional --- 65847, Colonoscopy, flexible; with biopsy, single or multiple CPT copyright 2017 [employer]. All rights reserved. The codes documented in this report are preliminary and upon communication engineer review may be revised to meet current compliance requirements. Attila Bates DO 08/23/2022 3:18:55 PM This report has been signed electronically. Number of Addenda: 0 Note Initiated On: 08/23/2022 2:42 PM
--- NOTE | 2022-08-23 15:19 | OP.CCLET_ITS ---
08/23/2022 Phyllis Pichardo Do Re : Colonoscopy procedure for Toshia Cain Dear Kylee This procedure was performed on Tuesday, August 23, 2022. My impressions and recommendations are as follows: Impressions : - Congested mucosa in the sigmoid colon, in the descending colon and at the hepatic flexure. Biopsied. - The examined portion of the ileum was normal. Biopsied. Recommendations : - Discharge patient to home. - Resume previous diet. - Continue present medications. - Await pathology results. - Repeat colonoscopy is recommended. The colonoscopy date will be determined after pathology results from today's exam become available for review. My findings are described in the full procedure note, which is enclosed. If I can be of further assistance, please feel free to contact me at . Sincerely, Attila Bates, 08/23/2022 3:18:55 PM This report has been signed electronically.
[2022-08-23 15:20] VITALS: BP 118/84; BP 126/63; PULSE 85; RESP 16; O2SAT 100
[2022-08-23 15:26] VITALS: BP 121/76; BP 126/63; PULSE 90; RESP 16; TEMP 37.1; O2SAT 100
[2022-08-23 15:44] VITALS: BP 126/63
== END 2022-08-23 16:20 | disposition home or self-care (01) ==
LOC: EN 12:55 → AC 12:56
PROVIDERS: Anesthesiology; PCP Family Medicine; Referring Provider Family Medicine; Visit Provider Internal Medicine Gastroenterology
PROC: 0DJD8ZZ Inspection of Lower Intestinal Tract, Via Natural or Artificial Opening Endoscopic (ICD-10-PCS; CPT 45378; principal; 2022-08-23 14:10)
DX: K31.89 Other diseases of stomach and duodenum (principal); K21.00 Gastro-esophageal reflux disease with esophagitis, without bleeding; K29.70 Gastritis, unspecified, without bleeding; K63.89 Other specified diseases of intestine
CPT/HCPCS: 43239; 45380; 81025; 88305; 88313; 88342; J7120; J2405

== ENCOUNTER → 2022-09-08 | Outpatient (CLI) | payer BC, SELFPAY ==
--- NOTE | 2022-09-08 15:15 | RAD_ITS ---
INDICATION: Sitz marker study EXAMINATION/TECHNIQUE: X-RAY - XR Abdomen 1 View Day 3 COMPARISON: FINDINGS: BOWEL GAS PATTERN: Moderate amount of stool in the colon. 23 Sitzmarks markers are noted in the ascending and transverse colon. FREE AIR: Not assessed on a single supine view. ORGANOMEGALY: Not seen. CALCIFICATIONS: No abnormal calcifications observed. LOWER CHEST: No acute pathology. BONES AND SOFT TISSUES: No acute pathology. RAD/Abdomen Single View IMPRESSION: 23 Sitzmarks markers are noted at day 3 in the ascending and transverse colon. Electronically Signed: Kyler Marie MD at 7:09 EDT ,
== END | disposition home or self-care (01) ==
PROVIDERS: PCP Family Medicine; Referring Provider Internal Medicine Gastroenterology; Visit Provider Internal Medicine Gastroenterology
DX: R19.8 Other specified symptoms and signs involving the digestive system and abdomen (principal)
CPT/HCPCS: 74018

== ENCOUNTER → 2023-01-16 | Outpatient (CLI) | payer BC, SELFPAY ==
[2023-01-20 21:07] LABS: Alternaria alternata <0.10 kU/L (Class 0); Aspergillus fumigatus <0.10 kU/L (Class 0); Bahia Grass <0.10 kU/L (Class 0); Bermuda Grass <0.10 kU/L (Class 0); Bluegrass, Kentucky <0.10 kU/L (Class 0); Cat Hair/Dander, Standard <0.10 kU/L (Class 0); Cedar, Mountain <0.10 kU/L (Class 0); Cladosporium herbarum <0.10 kU/L (Class 0); Clam <0.10 kU/L (Class 0); Cockroach, American <0.10 kU/L (Class 0); Codfish <0.10 kU/L (Class 0); Corn <0.10 kU/L (Class 0); D farinae Mite <0.10 kU/L (Class 0); D pteronyssinus <0.10 kU/L (Class 0); Dog Epithelia <0.10 kU/L (Class 0); Egg, White <0.10 kU/L (Class 0); Elm, American White <0.10 kU/L (Class 0); Hazelnut Tree <0.10 kU/L (Class 0); Hickory, White <0.10 kU/L (Class 0); Johnson Grass <0.10 kU/L (Class 0); Maple/Box Elder <0.10 kU/L (Class 0); Milk (Cow) <0.10 kU/L (Class 0); Mucor racemosus <0.10 kU/L (Class 0); Mugwort <0.10 kU/L (Class 0); Mulberry, White <0.10 kU/L (Class 0); Nettle <0.10 kU/L (Class 0); Oak, White <0.10 kU/L (Class 0); Peanut <0.10 kU/L (Class 0); Penicillium chrysogen <0.10 kU/L (Class 0); Pigweed, Rough <0.10 kU/L (Class 0); Plantain, English <0.10 kU/L (Class 0); Ragweed, Short/Common <0.10 kU/L (Class 0); SCALLOP <0.10 kU/L (Class 0); SESAME SEED <0.10 kU/L (Class 0); Sheep Sorrel(Dock) <0.10 kU/L (Class 0); Shrimp <0.10 kU/L (Class 0); Soybean <0.10 kU/L (Class 0); Stemphylium herbarum <0.10 kU/L (Class 0); Sweet Gum <0.10 kU/L (Class 0); Sycamore, American <0.10 kU/L (Class 0); Walnut, (Food) <0.10 kU/L (Class 0); Wheat <0.10 kU/L (Class 0)
== END | disposition home or self-care (01) ==
PROVIDERS: PCP Family Medicine; Referring Provider Internal Medicine Gastroenterology; Visit Provider Internal Medicine Gastroenterology
DX: R19.8 Other specified symptoms and signs involving the digestive system and abdomen (principal); R76.8 Other specified abnormal immunological findings in serum; K59.09 Other constipation
CPT/HCPCS: 36415; 86003; 86005